=== PATIENT | female | born 1985 | race Caucasian/White ===

== ENCOUNTER 2016-07-23 21:17 | Emergency (ER) | payer OTHER ==
[~2016-07-23] VITALS: Ht 170.2 cm; Wt 166.9 kg
[~2016-07-23 21:17] MED LIST: CYCL10TA2 PO; DICL100T PO; HYDR-971 PO; PRED20TA PO
[2016-07-23] MEDS ORDERED: OXYCODONE/APAP 5/325 TABLET. PO ONE (21:45)
[2016-07-23] MEDS ORDERED: CYCLOBENZAPRINE 10 MG TABLET. PO ONE (21:45)
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
[2016-07-23] MEDS ORDERED: CYCL10TA2 PO (23:26)
[2016-07-23] MEDS ORDERED: HYDR-971 PO (23:26)
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
[2016-07-23 23:50] VITALS: BP 133/78
[2016-07-24] MEDS ORDERED: HYDR-971 PO (00:37)
== END 2016-07-23 23:54 | disposition home or self-care (01) ==
LOC: ER 21:17
DX: S13.9XXA Sprain of joints and ligaments of unspecified parts of neck, initial encounter (principal); S23.3XXA Sprain of ligaments of thoracic spine, initial encounter; S33.5XXA Sprain of ligaments of lumbar spine, initial encounter; S00.93XA Contusion of unspecified part of head, initial encounter; F41.9 Anxiety disorder, unspecified; E11.9 Type 2 diabetes mellitus without complications; G89.29 Other chronic pain; Z88.8 Allergy status to other drugs, medicaments and biological substances; V43.52XA Car driver injured in collision with other type car in traffic accident, initial encounter; Y93.I9 Activity, other involving external motion; Y92.410 Unspecified street and highway as the place of occurrence of the external cause; Y99.8 Other external cause status
CPT/HCPCS: 70450; 72125; 72128; 72131; 99284-25